=== PATIENT | female | born 1985 | race Caucasian/White ===

== ENCOUNTER → 2019-08-19 | Outpatient (CLI) | payer OTHER ==
--- NOTE | 2019-08-19 14:20 | RAD ---
ABDOMEN LTD History:Reason: LUMP ON ABD / Spl. Instructions: / History: Comparison: None Technique: Sonographic examination of the anterior abdominal wall Findings: Hyperechoic lesion within the anterior abdominal wall subcutaneous fat to the left of the umbilicus measures 0.8 x 0.5 x 0.6 cm. Additional hyperechoic lesion superiorly measures 0.6 x 0.6 x 0.5 cm. No increased vascularity. Impression: 1. Hyperechoic lesions within the left anterior abdominal wall corresponding with patient's palpable abnormality, most likely lipomas. Electronically signed by: Hira Mcclain DO (08/19/2019 2:17 PM) [facility]
== END | disposition home or self-care (01) ==
LOC: US 09:26
PROVIDERS: ATTEND Clinical Nurse Specialist Family Health
DX: R22.2 Localized swelling, mass and lump, trunk (principal)
CPT/HCPCS: 76705